=== PATIENT | female | born 1965 | race Hispanic/Latino ===

== ENCOUNTER 2018-09-09 13:36 | Outpatient (CLI) | payer BC ==
[~2018-09-09 13:36] MED LIST: Iopamidol 370 76% 100 ML VIAL ONE
--- NOTE | 2018-09-09 14:57 | CT ---
CT Abdomen Pelvis W WO con History: [Hematuria] Comparison: None. Findings: Lung bases are clear. No pericardial effusion. On the noncontrast portion of the examinatio n there is no nephroureterolithiasis or hydronephrosis. No secondary evidence of a recently passed stone. No abnormal renal enhancing mass. There is a left parapelvic cyst measuring up to 1.6 cm in size. No abnormal urothelial enhancement. Urinary bladder is unremarkable. There appears to be a pedunculated fibroid of the anterior uterine body. There are no dilated loops o f large or small bowel. The appendix is visualized and is normal. No retroperitoneal adenopathy. Liver, gallbladder, spleen, pancreas are all unremarkable. No retroperitoneal adenopathy. Mild facet arthrosis lower lumbar spine. The spleen, liver, gallbladder, pancreas are all unremarkable. Impression: 1. No nephroureterolithiasis or hydronephrosis. No secondary evidence of a recently passed stone. 2. No abnormal urothelial enhancement nor renal enhancement. 3. Pedunculated anterior uterine body fibroid. 4. No acute intra-abdominal abnormality. 5. Left renal parapelvic cysts.
== END 2018-09-09 13:37 | disposition home or self-care (01) ==
LOC: SCSCT 13:36
PROVIDERS: ATTEND Urology
DX: R31.29 Other microscopic hematuria (principal); D25.9 Leiomyoma of uterus, unspecified; N28.1 Cyst of kidney, acquired
CPT/HCPCS: 74178; Q9967